=== PATIENT | female | born 1970 | race Caucasian/White ===

== ENCOUNTER → 2021-02-11 | Outpatient (CLI) | payer OTHER ==
[2021-02-11 14:27] LABS: HEMOGLOBIN 13.7 gm/dl (12.3-15.3); RED BLOOD COUNT 4.5 M/UL (4.00-5.10); WHITE BLOOD COUNT 4.1 K/UL (4.5-11.0)
[2021-02-11 14:46] LABS: BUN/CREATININE RATIO 14 (0-10)
[2021-02-12 07:11] LABS: COMPLEMENT C3, SERUM 95 mg/dL (82-167); COMPLEMENT C4, SERUM 17 mg/dL (12-38); RHEUMATOID ARTHRITIS FACTOR <10.0 IU/mL (0.0-13.9); VITAMIN D, 25-HYDROXY 31.6 ng/mL (30.0-100.0)
[2021-02-13 00:09] LABS: CCP ANTIBODIES IGG/IGA 2 units (0-19)
[2021-02-15 06:47] LABS: DSDNA CRITHIDIA LUCILIAE IFA Negative (Negative)
== END ==
LOC: LAB 12:53
PROVIDERS: Nurse Practitioner Family
DX: L93.0 Discoid lupus erythematosus (principal); M25.50 Pain in unspecified joint; D89.9 Disorder involving the immune mechanism, unspecified; R76.8 Other specified abnormal immunological findings in serum
CPT/HCPCS: 36415; 80053; 81001; 82550; 82570; 82728; 83520; 84156; 84439; 84443; 85025; 85652; 86160; 86162; 86200; 86255; 86431